=== PATIENT | female | born 1935 | race Caucasian/White ===

== ENCOUNTER 2018-12-11 09:42 | Emergency (ER) | payer MEDICARE, BC ==
[~2018-12-11] VITALS: Ht 160 cm; Wt 65.9 kg
[~2018-12-11 09:42] MED LIST: HYZAAR 100-25 T1 TAB PO; KLONOPIN0.5 MG PO; LIPITOR20 MG PO; NEURONTIN 300300 MG PO; NORVASC10 MG PO; PROZAC20 MG PO; ZOFRAN4 MG PO
[2018-12-11 09:54] VITALS: Ht 160 cm; Wt 65.9 kg
[2018-12-11 10:33] LABS: ANION GAP 11.4 mmol/L (8-16); CARBON DIOXIDE 26.8 mmol/L (21.0-32.0); CREATININE - SERUM 1.1 mg/dL (0.6-1.3); POTASSIUM - SERUM 3.2 mmol/L (3.5-5.1)
[2018-12-11 10:39] LABS: ALBUMIN 3.4 g/dL (3.4-5.0); BILIRUBIN - TOTAL 0.62 mg/dL (0.2-1.3); PROTEIN - SERUM 7.4 g/dL (6.4-8.2)
[2018-12-11 10:43] LABS: BASOPHILS 0.2 % (0-2); EOSINOPHILS 0.3 % (0-7); HEMATOCRIT 41.7 % (36.0-48.0); HEMOGLOBIN 13.5 g/dL (12-16); IMMATURE GRANULOCYTES 0.5 % (0-5); LYMPHOCYTES 19.3 % (15-50); MCH 27.6 pg (26.0-34.0); MCHC 32.4 g/dL (31.0-37.0); MCV 85.3 fL (80.0-100.0); MEAN PLATELET VOLUME 10.3 fL (7.4-10.4); MONOCYTES 6.2 % (2-11); NEUTROPHILS 73.5 % (40-80); PLATELET COUNT 304 10x3/uL (130-400); RBC 4.89 10x6/uL (4.00-5.40); RDW 13.5 % (11.5-14.5); WBC 5.9 10x3/uL (4.8-10.8)
[2018-12-11 11:21] LABS: APPEARANCE CLEAR (CLEAR); COLOR YELLOW (YELLOW); NITRITE NEGATIVE (NEGATIVE); SPECIFIC GRAVITY 1.015 (1.005-1.020)
[2018-12-11 11:22] LABS: BILIRUBIN NEGATIVE (NEGATIVE); GLUCOSE NEGATIVE (NEGATIVE); KETONE MODERATE mg/dL (NEGATIVE); PROTEIN 1+ mg/dL (NEGATIVE)
[2018-12-11 11:24] LABS: BACTERIA FEW /hpf (NEGATIVE); EPITHELIAL CELLS 0-5 /hpf (0-5); HYALINE CAST RARE /lpf (NONE SEEN); MUCUS >1+ /lpf (NONE SEEN); RED CELLS - URINE 0-5 /hpf (0-5); WHITE CELLS - URINE RARE /hpf (NEGATIVE)
[2018-12-11 12:38] LABS: APTT 28.5 SECONDS (22.8-39.4); INR 1.07 (0.85-1.17); PROTIME 13.4 SECONDS (11.6-15.0)
[2018-12-11 12:43] LABS: UDS - AMPHET NEGATIVE QUAL (NEGATIVE); UDS - BARB NEGATIVE QUAL (NEGATIVE); UDS - BENZO NEGATIVE QUAL (NEGATIVE); UDS - COCAINE NEGATIVE QUAL (NEGATIVE); UDS - OPIATE POSITIVE QUAL (NEGATIVE); UDS - PCP NEGATIVE QUAL (NEGATIVE); UDS - THC NEGATIVE QUAL (NEGATIVE)
[2018-12-11 12:53] LABS: CKMB 1.3 U/L (0.0-3.6); CREATINE KINASE 103 UL (21-215); MAGNESIUM - SERUM 2.1 mg/dL (1.8-2.4); THYROID STIMULATING HORMONE 1.96 uIU/mL (0.36-3.74); TROPONIN-I < 0.017 ng/mL (0.000-0.060)
[2018-12-11 14:31] LABS: T4 THYROXINE 9.7 ug/dL (4.7-13.3); THYROID STIMULATING HORMONE 1.82 uIU/mL (0.36-3.74)
[2018-12-11 14:41] VITALS: BP 156/89
== END 2018-12-11 14:42 | disposition home or self-care (01) ==
LOC: D.ER 09:42
PROVIDERS: Emergency Medicine
DX: R41.0 Disorientation, unspecified (principal); I10 Essential (primary) hypertension; F41.8 Other specified anxiety disorders

== ENCOUNTER 2019-01-27 07:16 | Observation (INO) | payer MEDICARE, BC ==
[~2019-01-27] VITALS: Ht 160 cm; Wt 78.0 kg
--- NOTE | ~2019-01-27 | EC ---
PATIENT:MARISA ANDERSEN DATE OF SERVICE: 01/27/19 SEX: F MEDICAL RECORD: [id number] DATE OF : 37 LOCATION:D.[facility] AGE OF PATIENT: 83 ADMISSION DATE: 01/27/19 REFERRING PHYSICIAN: INTERPRETING PHYSICIAN: LUIS HERNÁNDEZ MD ECHOCARDIOGRAM REPORT ECHO CHARGES 4 ECHO COMPLETE Date: 01/28/19 CLINICAL DIAGNOSIS: DYSPNEA/CHEST PAIN ECHOCARDIOGRAPHIC MEASUREMENTS (adult normal given) AC root (d.<3.7cm) 3.5 cm LV Septum d (<1.2 cm> 1.5 cm Valve Excursion 1.6 cm LV Septum (systole) 1.8 cm Left Atria (s.<4.0cm> 3.9 cm LVPW d(<1.2cm) 2.0 cm RV (d.<2.3cm) 3.8 cm LVPW (sytole) 2.2 cm LV diastole(<5.6CM) 4.0 cm MV E-F(>70mm/sec) cm LV systole 2.3 cm LVOT Diameter 1.7 cm MV exc.(>10mm) 1.2 cm Est.ejection fraction (50-75%) % DOPPLER: LVIT cm/sec A 106.0cm/sec E 76.0 cm/sec LA cm/sec RVSP 30 mmHg LVOT 159 cm/sec AOP1/2T m/s Asc. Ao 193 cm/sec RVOT 113 cm/sec RA cm/sec PA 171 cm/sec AV Gradient Peak 14.91mmHg AV Mean 8.62 mmHg AV Area 2.1 cm MV Gradient Peak 5.85 mmHg MV Mean 2.10 mmHg MV Area cm COMMENTS: Gang Drill Operator: Saad SOSA Emergency Department Nurse: 1 Dr. Hernández TAPE# PACS Pericardial Effusion N DATE OF SERVICE: 01/28/2019 ECHOCARDIOGRAM FINDINGS: 1. Left ventricular chamber size is within normal limits. Left ventricular systolic function is normal. Overall ejection fraction estimated at 60%. 2. Left atrium, right atrium, right ventricle chamber sizes are within normal limits. 3. Valvular structures have normal structure and motion. ECHOCARDIOGRAM REPORT [id number] MARISA ANDERSEN 4. Doppler interrogation reveals mild tricuspid regurgitation, no other valvular insufficiency or stenosis. Pulmonary systolic pressure estimated at 30 mmHg. 5. No evidence of pericardial effusion or left ventricular thrombus. TRANSINT:[id number] Voice Confirmation ID: [id number] DOCUMENT ID: [id number] LUIS HERNÁNDEZ MD CC: [id number] DICTATION DATE: 01/28/191525 ASSOCIATE PRODUCER: 01/28/19 2355 ADM IN [facility] [address] [id number]
[2019-01-27 07:41] LABS: BASOPHILS 0.2 % (0-2); EOSINOPHILS 1.8 % (0-7); HEMATOCRIT 37.5 % (36.0-48.0); HEMOGLOBIN 12.3 g/dL (12-16); IMMATURE GRANULOCYTES 0.2 % (0-5); MCH 27.7 pg (26.0-34.0); MCHC 32.8 g/dL (31.0-37.0); MCV 84.5 fL (80.0-100.0); MEAN PLATELET VOLUME 9.7 fL (7.4-10.4); MONOCYTES 12.5 % (2-11); NEUTROPHILS 69.3 % (40-80); RBC 4.44 10x6/uL (4.00-5.40); RDW 13.4 % (11.5-14.5); WBC 4.6 10x3/uL (4.8-10.8)
[2019-01-27 07:45] LABS: PLATELET COUNT 242 10x3/uL (130-400)
[2019-01-27 07:52] LABS: ANION GAP 12.8 mmol/L (8-16); CALCIUM 8.5 mg/dL (8.5-10.1); CARBON DIOXIDE 25.4 mmol/L (21.0-32.0); CREATININE - SERUM 1.1 mg/dL (0.6-1.3); POTASSIUM - SERUM 3.2 mmol/L (3.5-5.1)
[2019-01-27 08:00] LABS: ALBUMIN 2.9 g/dL (3.4-5.0); BILIRUBIN - TOTAL 0.35 mg/dL (0.2-1.3); PROTEIN - SERUM 6.7 g/dL (6.4-8.2)
[2019-01-27 08:01] LABS: APTT 30.3 SECONDS (22.8-39.4); INR 1.15 (0.85-1.17); PROTIME 14.2 SECONDS (11.6-15.0)
[2019-01-27 08:15] LABS: CKMB 0.8 U/L (0.0-3.6); CREATINE KINASE 89 UL (21-215); PRO BNP 1218 pg/mL (0-450)
[2019-01-27 08:17] LABS: TROPONIN-I < 0.017 ng/mL (0.000-0.060)
[2019-01-27 09:05] VITALS: BP 128/61
[2019-01-27 10:00] VITALS: BP 124/60
[2019-01-27] MEDS ORDERED: HYDRALAZINE HCL10 MG ×2 (10:30→10:39)
[2019-01-27] MEDS ORDERED: HYDROCODON-ACE1 EA10 (10:31)
[2019-01-27] MEDS ORDERED: PROZAC10 MG (10:33)
[2019-01-27] MEDS ORDERED: NEURONTIN 300300 MG (10:36)
[2019-01-27 13:43] VITALS: BP 123/45
[2019-01-27 16:16] VITALS: BP 130/49
[2019-01-27 19:57] LABS: APPEARANCE CLEAR (CLEAR); BILIRUBIN NEGATIVE (NEGATIVE); COLOR YELLOW (YELLOW); GLUCOSE NEGATIVE (NEGATIVE); KETONE NEGATIVE (NEGATIVE); NITRITE NEGATIVE (NEGATIVE); PROTEIN NEGATIVE (NEGATIVE); SPECIFIC GRAVITY 1.015 (1.005-1.020); UROBILINOGEN NORMAL (NORMAL)
[2019-01-27 20:00] VITALS: BP 129/79
--- NOTE | 2019-01-27 20:00 | NUR ---
ALERT RESTING IN BED, DENIES PAIN OR NEEDS AT THIS TIME, SEE SHIFT ASSESSMENT, CALL LIGHT IN REACH
[2019-01-28] VITALS: BP 129/60
[2019-01-28 04:00] VITALS: BP 140/71
[2019-01-28 05:13] LABS: BASOPHILS 0 % (0-2); EOSINOPHILS 0 % (0-7); HEMATOCRIT 36.3 % (36.0-48.0); HEMOGLOBIN 11.9 g/dL (12-16); IMMATURE GRANULOCYTES 0.6 % (0-5); LYMPHOCYTES 11.4 % (15-50); MCH 27.6 pg (26.0-34.0); MCHC 32.8 g/dL (31.0-37.0); MCV 84.2 fL (80.0-100.0); MEAN PLATELET VOLUME 10.1 fL (7.4-10.4); MONOCYTES 0.9 % (2-11); NEUTROPHILS 87.1 % (40-80); PLATELET COUNT 225 10x3/uL (130-400); RBC 4.31 10x6/uL (4.00-5.40); RDW 13.5 % (11.5-14.5); WBC 3.5 10x3/uL (4.8-10.8)
[2019-01-28 05:49] LABS: ANION GAP 14.4 mmol/L (8-16); CALCIUM 8.6 mg/dL (8.5-10.1); MAGNESIUM - SERUM 1.7 mg/dL (1.8-2.4); POTASSIUM - SERUM 3.4 mmol/L (3.5-5.1)
[2019-01-28 08:01] VITALS: BP 108/58
[2019-01-28 12:43] VITALS: BP 98/59
[2019-01-28 15:51] VITALS: BP 114/599
--- NOTE | 2019-01-28 18:45 | NUR ---
I have reviewed this patient and I concur with the Shift Assessment completed by the Licensed Practical Nurse today this shift.
--- NOTE | 2019-01-28 19:44 | NUR ---
LYING IN BED. APPEARS TO BE ANXIOUS. DOES NOT WANT DOOR SHUT, WANTS LIGHT ON, REQUESTS GRANTED. VERY PARTICULAR ABOUT BEDDING AND ITEMS ON TABLE. PLEASANTLY CONFUSED. NO IV ACCESS AT THIS TIME. WILL RESITE THIS SHIFT. ABLE TO VOICE NEEDS. DENIES PAIN AT THIS TIME.
[2019-01-28 20:00] VITALS: BP 159/64
--- NOTE | 2019-01-28 21:46 | NUR ---
CONTINUES TO BE ANXIOUS. REQUESTS MEDICATION TO HELP SLEEP, BOBO NOTIFIED WITH ORDERS TO GIVE 25MG BENADRYL IV NOW. WILL NOTE ANY CHANGE.
--- NOTE | 2019-01-28 22:56 | NUR ---
AT 2200, IV RESITED TO LEFT FOREARM, IV BENADRYL GIVEN PER ORDERS. AT THIS TIME, SHE IS STILL SLIGHTLY ANXIOUS, WILL CONTINUE TO OBSERVE.
--- NOTE | 2019-01-29 03:02 | NUR ---
I have reviewed this patient and I concur with the Shift Assessment completed by the Licensed Practical Nurse today this shift.
[2019-01-29 04:00] VITALS: BP 138/84
[2019-01-29 04:38] LABS: BASOPHILS 0 % (0-2); EOSINOPHILS 0 % (0-7); HEMATOCRIT 35.3 % (36.0-48.0); HEMOGLOBIN 11.7 g/dL (12-16); IMMATURE GRANULOCYTES 0.3 % (0-5); LYMPHOCYTES 5.5 % (15-50); MCH 27.6 pg (26.0-34.0); MCHC 33.1 g/dL (31.0-37.0); MCV 83.3 fL (80.0-100.0); MEAN PLATELET VOLUME 10.5 fL (7.4-10.4); MONOCYTES 4.7 % (2-11); NEUTROPHILS 89.5 % (40-80); PLATELET COUNT 269 10x3/uL (130-400); RBC 4.24 10x6/uL (4.00-5.40); RDW 13.7 % (11.5-14.5)
[2019-01-29 04:43] LABS: WBC 12.6 10x3/uL (4.8-10.8)
[2019-01-29 04:58] LABS: ANION GAP 14.1 mmol/L (8-16); CALCIUM 8.9 mg/dL (8.5-10.1); CARBON DIOXIDE 25.9 mmol/L (21.0-32.0); CREATININE - SERUM 1.1 mg/dL (0.6-1.3); MAGNESIUM - SERUM 1.8 mg/dL (1.8-2.4)
--- NOTE | 2019-01-29 07:20 | NUR ---
PT BED ALARM SOUNDING. ENTER ROOM TO FIND PT STANDING AT BEDSIDE ANSWERING PHONE. ASSISTED PT BACK TO BED AND MOVED PHONE CLOSER TO PT. RESP EVEN AND UNLABORED. SALINE LOC TO LEFT FOREARM. SITE WITHOUT REDNESS OR EDEMA. DENIES PAIN AT THIS TIME. DENIES FURTHER NEEDS. CL WITHIN REACH. ENCOURAGED TO CALL WITH NEEDS. CONTINUE POC
[2019-01-29 08:45] VITALS: BP 130/64
[2019-01-29 09:34] VITALS: Ht 160 cm; Wt 78.0 kg
[2019-01-29] MEDS ORDERED: ZPAK PO (11:28)
[2019-01-29] MEDS ORDERED: TESSALON PERLE100 MG PO (11:28)
[2019-01-29] MEDS ORDERED: MUCINEX600 MG PO (11:29)
--- NOTE | 2019-01-29 12:15 | NUR ---
PT SITTING UP IN CHAIR AT BEDSIDE. READY FOR D/C HOME. SALINE LOC D/C'D FROM LEFT FOREARM. CATH INTACT. PT VOICES SHE WILL CONSUME LUNCH AND THEN BE READY FOR D/C PAPERWORK.
[2019-01-29] MEDS ORDERED: PREDNISONE10 MG PO (13:02)
[2019-01-29 13:21] VITALS: BP 140/51
--- NOTE | 2019-01-30 08:37 | CN ---
PATIENT NAME:MARISA ANDERSEN MEDICAL RECORD: [id number] : 37 LOCATION:D.MS [facility] ADMIT DATE: 01/27/19 ACCOUNT: [id number] CONSULTING PHYSICIAN: GERRI LOPES MD REFERRING PHYSICIAN: ANNETTA STALH MD DATE OF CONSULTATION: 01/29/2019 PSYCHIATRIC CONSULTATION IDENTIFYING DATA: The patient is 83 years old and she was admitted to the hospital on a voluntary basis. CHIEF COMPLAINT: Memory loss. HISTORY OF PRESENT ILLNESS: The patient's son who is a director of quality improvement is with her. He says he has noticed short-term memory loss. The patient denies that she is having any memory loss. Apparently, her primary care doctor felt that this might be a problem in the past and he tried her on Aricept, which she did not tolerate. There is no evidence of acute or direct dangerousness. The patient handles most of her affairs at home without any assistance including shopping and cooking and housework and paying her bills. The son only lives a mile away. Apparently, he checks on her frequently. The patient is oriented, but does have some short-term memory loss. ASSESSMENT: Mild cognitive impairment. PLAN: The patient does have evidence of significant memory loss as to whether or not this is going to proceed a full blown dementia is unknown. I am recommending medication and I am going to start her on Namenda at 2.5 mg twice daily. This should be increased in a week or two to 5 mg twice daily if tolerated. She has the appointment or is getting an appointment at the [facility] in [place] and that may be more helpful as they will be able to do a full round of neuropsychiatric testing. TRANSINT:[id number] Voice Confirmation ID: [id number] DOCUMENT ID: [id number] GERRI LOPES MD at 0837 CC: [id number] DICTATION DATE: 01/29/19 1312 COMMERCIAL DRIVER'S LICENSE DRIVER: 01/29/19 1356 DIS IN 01/29/19 [facility] [address] [place] [address]
== END 2019-01-29 13:42 | disposition home or self-care (01) ==
LOC: D.ER 07:16 → D.MS 08:47 → OBSVTIME 01-28 13:05 → D.MS 01-29 13:42
PROVIDERS: Family Medicine; ADMIT Internal Medicine Nephrology; ATTEND Internal Medicine Nephrology
DX: J01.90 Acute sinusitis, unspecified (principal); I10 Essential (primary) hypertension; M19.90 Unspecified osteoarthritis, unspecified site; E87.6 Hypokalemia; G89.29 Other chronic pain; J96.01 Acute respiratory failure with hypoxia; E66.9 Obesity, unspecified; Z68.30 Body mass index [BMI] 30.0-30.9, adult; J20.9 Acute bronchitis, unspecified; G31.84 Mild cognitive impairment of uncertain or unknown etiology

== ENCOUNTER 2019-10-05 16:01 | Emergency (ER) | payer MEDICARE, BC ==
[~2019-10-05] VITALS: Ht 160 cm; Wt 72.7 kg
[~2019-10-05 16:01] MED LIST changes: +HYDRALAZINE HCL10 MG; +HYDROCODON-ACE1 EA10; +MUCINEX600 MG PO; +NEURONTIN 300300 MG; +PREDNISONE10 MG PO; +PROZAC10 MG; +TESSALON PERLE100 MG PO; +ZPAK PO
[2019-10-05 16:27] VITALS: Ht 160 cm; Wt 72.7 kg
[2019-10-05 16:29] LABS: BILIRUBIN NEGATIVE (NEGATIVE); KETONE LARGE mg/dL (NEGATIVE); NITRITE NEGATIVE (NEGATIVE); UROBILINOGEN NORMAL (NORMAL)
[2019-10-05 16:57] LABS: BASOPHILS 0.4 % (0-2); EOSINOPHILS 0.2 % (0-7); HEMOGLOBIN 11.3 g/dL (12-16); IMMATURE GRANULOCYTES 0.2 % (0-5); LYMPHOCYTES 25.4 % (15-50); MCH 27.2 pg (26.0-34.0); MCHC 32.3 g/dL (31.0-37.0); MCV 84.3 fL (80.0-100.0); MEAN PLATELET VOLUME 9.6 fL (7.4-10.4); MONOCYTES 8.5 % (2-11); NEUTROPHILS 65.3 % (40-80); PLATELET COUNT 302 10x3/uL (130-400); RBC 4.15 10x6/uL (4.00-5.40); RDW 13.7 % (11.5-14.5); WBC 5.3 10x3/uL (4.8-10.8)
[2019-10-05 17:04] LABS: APTT 27.9 SECONDS (22.8-39.4); INR 1.12 (0.85-1.17); PROTIME 14.3 SECONDS (11.6-15.0)
[2019-10-05 17:06] LABS: ANION GAP 13.8 mmol/L (8-16); CALCIUM 9.3 mg/dL (8.5-10.1); CARBON DIOXIDE 24.6 mmol/L (21.0-32.0); CREATININE - SERUM 1.1 mg/dL (0.6-1.3); POTASSIUM - SERUM 3.4 mmol/L (3.5-5.1)
[2019-10-05 17:20] LABS: ALBUMIN 3.4 g/dL (3.4-5.0); BILIRUBIN - TOTAL 0.66 mg/dL (0.2-1.3); PROTEIN - SERUM 6.6 g/dL (6.4-8.2); THYROID STIMULATING HORMONE 3.8 uIU/mL (0.36-3.74); TROPONIN-I 0.025 ng/mL (0.000-0.060)
[2019-10-05 17:21] LABS: UDS - AMPHET NEGATIVE QUAL (NEGATIVE); UDS - BARB NEGATIVE QUAL (NEGATIVE); UDS - BENZO NEGATIVE QUAL (NEGATIVE); UDS - COCAINE NEGATIVE QUAL (NEGATIVE); UDS - OPIATE NEGATIVE QUAL (NEGATIVE); UDS - PCP NEGATIVE QUAL (NEGATIVE); UDS - THC NEGATIVE QUAL (NEGATIVE)
[2019-10-05 19:58] VITALS: BP 145/62
== END 2019-10-05 20:00 | disposition home or self-care (01) ==
LOC: D.ER 16:01
PROVIDERS: Family Medicine
DX: G45.9 Transient cerebral ischemic attack, unspecified (principal); I12.9 Hypertensive chronic kidney disease with stage 1 through stage 4 chronic kidney disease, or unspecified chronic kidney disease; N18.9 Chronic kidney disease, unspecified; F03.90 Unspecified dementia, unspecified severity, without behavioral disturbance, psychotic disturbance, mood disturbance, and anxiety; R41.0 Disorientation, unspecified; R30.0 Dysuria; R05 Cough

== ENCOUNTER 2019-10-25 15:47 | Inpatient (IN) | payer MEDICARE, BC ==
[~2019-10-25] VITALS: Ht 160 cm; Wt 81.8 kg
[~2019-10-25 15:47] MED LIST changes: +HYDRALAZINE HCL10 MG PO; -HYDROCODON-ACE1 EA10; +HYDROCODON-ACE1 EA10 PO; -NEURONTIN 300300 MG; -PROZAC10 MG; +PROZAC10 MG PO
[2019-10-25 16:21] LABS: BASOPHILS 0.3 % (0-2); EOSINOPHILS 0.5 % (0-7); HEMATOCRIT 38.2 % (36.0-48.0); HEMOGLOBIN 12.7 g/dL (12-16); IMMATURE GRANULOCYTES 0.6 % (0-5); LYMPHOCYTES 17.5 % (15-50); MCHC 33.2 g/dL (31.0-37.0); MCV 84.3 fL (80.0-100.0); MEAN PLATELET VOLUME 9.6 fL (7.4-10.4); NEUTROPHILS 73.1 % (40-80); PLATELET COUNT 269 10x3/uL (130-400); RBC 4.53 10x6/uL (4.00-5.40); RDW 13.2 % (11.5-14.5); WBC 6.5 10x3/uL (4.8-10.8)
[2019-10-25] MEDS ORDERED: COMPAZINE PO (16:29)
[2019-10-25] MEDS ORDERED: NAMENDA10 MG PO (16:30)
[2019-10-25 16:31] LABS: CALC OSMOLALITY 272 mosm/kg (275-300); CALCIUM 9.4 mg/dL (8.5-10.1); CARBON DIOXIDE 26.2 mmol/L (21.0-32.0); CHLORIDE - SERUM 100 mmol/L (98-107); CREATININE - SERUM 1.1 mg/dL (0.6-1.3); GLUCOSE 94 mg/dL (74-106); POTASSIUM - SERUM 3.2 mmol/L (3.5-5.1); SODIUM 136 mmol/L (136-145); UREA NITROGEN 16 mg/dL (7-18); eGFR NON AFRICAN AMERICAN 50 mL/min (90-120)
[2019-10-25 16:44] LABS: INR 1.04 (0.85-1.17); PROTIME 13.6 SECONDS (11.6-15.0)
[2019-10-25 16:48] LABS: ALBUMIN 3.6 g/dL (3.4-5.0); ALKALINE PHOSPHATASE 55 U/L (30-120); ALT (SGPT) 15 U/L (10-68); BILIRUBIN - TOTAL 0.58 mg/dL (0.2-1.3); CKMB 1.2 U/L (0.0-3.6); CREATINE KINASE 95 UL (21-215); MAGNESIUM - SERUM 1.9 mg/dL (1.8-2.4); PROTEIN - SERUM 7.1 g/dL (6.4-8.2)
[2019-10-25 16:50] LABS: TROPONIN-I 0.016 ng/mL (0.000-0.060)
--- NOTE | 2019-10-25 17:24 | NUR ---
URINE TO LAB
[2019-10-25 17:38] LABS: BILIRUBIN NEGATIVE (NEGATIVE); KETONE SMALL mg/dL (NEGATIVE); NITRITE NEGATIVE (NEGATIVE); UROBILINOGEN NORMAL mg/dL (< 2)
[2019-10-25 17:45] VITALS: BP 176/76
[2019-10-25 18:30] VITALS: BP 189/66
--- NOTE | 2019-10-25 19:05 | NUR ---
REPORT TO BENJIE RUDD
[2019-10-26 00:02] VITALS: BP 147/68; Ht 160 cm; Wt 81.8 kg
[2019-10-26 04:00] VITALS: BP 160/60
[2019-10-26 06:56] LABS: INR 1.11 (0.85-1.17); PROTIME 14.3 SECONDS (11.6-15.0)
[2019-10-26 06:59] LABS: APTT 27.6 SECONDS (22.8-39.4)
[2019-10-26 07:43] LABS: HEMATOCRIT 36.1 % (36.0-48.0); MCH 27.9 pg (26.0-34.0); MCHC 33.2 g/dL (31.0-37.0); MEAN PLATELET VOLUME 9.8 fL (7.4-10.4); NEUTROPHILS 72.4 % (40-80); PLATELET COUNT 298 10x3/uL (130-400); RDW 40.7 % (11.5-14.5)
[2019-10-26 07:44] VITALS: BP 157/70
[2019-10-26 07:44] LABS: EOSINOPHILS 0.5 % (0-7); LYMPHOCYTES 16.1 % (15-50); MONOCYTES 10.4 % (2-11)
[2019-10-26 08:00] LABS: ALBUMIN 3.3 g/dL (3.4-5.0); ANION GAP 15.3 mmol/L (8-16); BILIRUBIN - TOTAL 0.6 mg/dL (0.2-1.3); CALCIUM 8.8 mg/dL (8.5-10.1); CARBON DIOXIDE 22.6 mmol/L (21.0-32.0); CREATININE - SERUM 0.9 mg/dL (0.6-1.3); LDL-HDL RATIO 0.9 ratio (1.5-3.5); MAGNESIUM - SERUM 1.8 mg/dL (1.8-2.4); PHOSPHOROUS 3.4 mg/dL (2.5-4.9); PROTEIN - SERUM 6.5 g/dL (6.4-8.2); THYROID STIMULATING HORMONE 3.44 uIU/mL (0.36-3.74); TROPONIN-I 0.022 ng/mL (0.000-0.060)
[2019-10-26 08:01] LABS: POTASSIUM - SERUM 2.9 mmol/L (3.5-5.1)
--- NOTE | 2019-10-26 09:28 | NUR ---
DR. FONTAINE NOTIFIED OF CONSULT WITH NEW ORDERS NOTED. PATINET HAVING MRI HEAD AT THIS TIME. ALERT AND ORIENTED BUT DISORIENTED TO SITUATION. SON PRESENT. HAND GRASP EQUAL WELL BLE STRENGTH. IV INTACT TO RT ARM. ENCOURAAGED TO USE CALL LIGHT FOR ASSIST.
--- NOTE | 2019-10-26 09:44 | NUR ---
REHAB PRESCREENING Rehab referral received and chart reviewed. This patient has many consults in process. ST/OT/PT/MRI and Neuro consults are pending. Rehab will continue to follow this patient for complete workup in order to assess admission criteria. Thank you for this referral! Shyla Jones, RESIDENTIAL CARE OFFICER Rehab PD
[2019-10-26 11:43] VITALS: BP 149/90
[2019-10-26 15:56] VITALS: BP 136/55
--- NOTE | 2019-10-26 19:30 | NUR ---
PT IN BED, AAO X 2. RESP EVEN AND UNLABORED, NO DISTRESS NOTED, CL IN REACH, SR UP X 2.
[2019-10-26 20:32] VITALS: BP 146/55
--- NOTE | 2019-10-27 02:00 | NUR ---
I have reviewed this patient and I concur with the Shift Assessment completed by the Licensed Practical Nurse today this shift.
[2019-10-27 05:57] VITALS: BP 154/58
[2019-10-27 06:13] LABS: BASOPHILS 0.2 % (0-2); HEMATOCRIT 36.5 % (36.0-48.0); HEMOGLOBIN 12.2 g/dL (12-16); IMMATURE GRANULOCYTES 0.3 % (0-5); MCH 27.7 pg (26.0-34.0); MCHC 33.4 g/dL (31.0-37.0); MEAN PLATELET VOLUME 10.1 fL (7.4-10.4); MONOCYTES 9.7 % (2-11); NEUTROPHILS 64.8 % (40-80); PLATELET COUNT 321 10x3/uL (130-400); RDW 13.3 % (11.5-14.5); WBC 5.9 10x3/uL (4.8-10.8)
[2019-10-27 06:51] LABS: ANION GAP 15.7 mmol/L (8-16); CALCIUM 8.9 mg/dL (8.5-10.1); CARBON DIOXIDE 20.9 mmol/L (21.0-32.0); CREATININE - SERUM 0.9 mg/dL (0.6-1.3); MAGNESIUM - SERUM 1.8 mg/dL (1.8-2.4); PHOSPHOROUS 2.7 mg/dL (2.5-4.9)
[2019-10-27 06:56] LABS: POTASSIUM - SERUM 3.6 mmol/L (3.5-5.1)
--- NOTE | 2019-10-27 08:00 | NUR ---
ALERT AND DISORIENTED TO SITUATION WITH SON PRESENT. NILD TREMOR NOTED TO RUE. AMBUALTES WITH SBA. WITH FALL PRECAUTIONS IN PLACE. DENIES ANY PAIN OR DISCOMFORT. HAND GRASP EQUAL. ENCOURAGED TO USE CALL LIGHT FOR ASSSIT.
[2019-10-27 08:16] VITALS: BP 183/60
[2019-10-27 09:59] VITALS: BP 156/60
[2019-10-27 12:23] VITALS: BP 139/62
[2019-10-27] MEDS ORDERED: PLAVIX75 MG PO (13:29)
--- NOTE | 2019-10-27 15:06 | NUR ---
IV DC/D AND VERBALIZED UNDERSTANDING FROM PATINET AND SON REGARDING DISCHARGE INSTRUCTIONS. STABLE AT TIME OF DISCHARGE.
--- NOTE | 2019-10-27 15:43 | MORECARE ---
CASE MANAGEMENT DISCHARGE SUMMARY PATIENT: MARISA ANDERSEN SHANE UNIT: [id number] ADM DATE: 10/25/19 AGE: 83 : 36 SEX: F ROOM/BED: D.[facility]7 AUTHOR: JAYE JEONG PHYSICIAN: REFERRING PHYSICIAN: JUAN BEST MD DATE OF SERVICE: 10/27/19 Discharge Plan Patient Name: MARISA ANDERSEN [facility] [facility] 1935 Planned Disposition: Home Anticipated Discharge Date: 10/27/19 Discharge Date: 10/27/2019 Expected LOS: 2 Initial Reviewer: [email or web address] Initial Review Date: 10/27/2019 Generated: 10/27/19 4:43 pm Patient Name: MARISA ANDERSEN Page [id number] at 1543 All edits/amendments must be made on the electronic document DICTATION DATE: 10/27/19 1543 LASER OPERATOR: SINDI 10/27/19 1543 RPT#: [id number] DC DATE:10/27/19 STATUS: DIS IN [facility] [address] [place] [address] END OF REPORT
--- NOTE | 2019-10-27 15:51 | MORECARE ---
CASE MANAGEMENT DISCHARGE SUMMARY PATIENT: MARISA ANDERSEN SHANE UNIT: [id number] ADM DATE: 10/25/19 AGE: 83 : 36 SEX: F ROOM/BED: D.[facility]7 AUTHOR: JAYE JEONG PHYSICIAN: REFERRING PHYSICIAN: JUAN BEST MD DATE OF SERVICE: 10/27/19 Discharge Plan Patient Name: MARISA ANDERSEN Facility: [facility]:[place] : 1935 Planned Disposition: Home Anticipated Discharge Date: 10/27/19 Discharge Date: 10/27/2019 Expected LOS: 2 Initial Reviewer: [email or web address] Initial Review Date: 10/27/2019 Generated: 10/27/19 4:50 pm DCPIA - Discharge Planning Initial Assessment Updated by HALLIE: Isael Hansen on 10/27/19 3:45 pm * Is the patient Alert and Oriented? Yes * How many steps to enter\exit or inside your home? 0/0 * PCP Dr. Jadon Hansen MD * Pharmacy [facility] * Preadmission Environment Home Alone * ADLs Independent * Equipment Cane Shower Chair Walker * Other Equipment n/a * List name and contact numbers for known caregivers / representatives who currently or will assist patient after discharge: LANDY ANDERSEN - [phone] * Verbal permission to speak to the caregivers and representatives has been obtained from the patient. Yes * Community resources currently utilized None * Please name any agencies selected above. N/A * Additional services required to return to the preadmission environment? No * Can the patient safely return to the preadmission environment? Yes * Has this patient been hospitalized within the prior 30 days at any hospital? No Coverage Notice Reviewer: [id number] Yuri Hansen Notice Issued Date-Time: 10/27/2019 13:55 Notice Type: Patient Choice Letter Notice Delivered To: Patient Relationship to Patient: Self Change Management Consultant Name: Delivery Method: HAND - Hand Delivered Yue Days: Prior Verbal Notification: Recipient Understood Notice: Yes Recipient Signature: Yes Med Rec Note Co-signed by Attending: Coverage Notice Comment: Refused HH, SNF, IPR, and DME Reviewer: [id number] Yuri Hansen Notice Issued Date-Time: 10/27/2019 13:55 Notice Type: IM Discharge Notice Notice Delivered To: Patient Relationship to Patient: Self Change Management Consultant Name: Delivery Method: HAND - Hand Delivered Yue Days: Prior Verbal Notification: Recipient Understood Notice: Yes Recipient Signature: Yes Med Rec Note Co-signed by Attending: Coverage Notice Comment: DC IMM delivered, explained, signed by the patient, and placed in chart. Signed form also left with the patient. Last DP export: 10/27/19 2:43 p Patient Name: MARISA ANDERSEN Page [phone] at 1551 All edits/amendments must be made on the electronic document DICTATION DATE: 10/27/19 155 DIGITAL ASSET SPECIALIST: SINDI 10/27/19 1550 RPT#: [id number] DC DATE:10/27/19 STATUS: DIS IN [facility] [address] [place] [address] END OF REPORT
--- NOTE | 2019-10-27 15:58 | MORECARE ---
CASE MANAGEMENT DISCHARGE SUMMARY PATIENT: MARISA ANDERSEN SHANE UNIT: [id number] ADM DATE: 10/25/19 AGE: 83 : 36 SEX: F ROOM/BED: D.7682 AUTHOR: JAYE JEONG PHYSICIAN: REFERRING PHYSICIAN: JUAN BEST MD DATE OF SERVICE: 10/27/19 Discharge Plan Patient Name: MARISA ANDERSEN Facility: [facility]:[place] : 1935 Planned Disposition: Home Anticipated Discharge Date: 10/27/19 Discharge Date: 10/27/2019 Expected LOS: 2 Initial Reviewer: HALLIE Initial Review Date: 10/27/2019 Generated: 10/27/19 4:58 pm Comments DCP- Discharge Planning Updated by [email or web address]: Isael Hansen on 10/27/19 2:[address] Patient Name: MARISA ANDERSEN Admission Status: ER Accout number: [id number] Admission Date: 10-25-2019 : 1935 Admission Diagnosis: Attending: JUAN BEST Current LOS: 2 Anticipated DC Date: 10-27-2019 Planned Disposition: Home Primary Insurance: MEDICARE A & B Discharge Planning Comments: CM met with patient to complete initial dc planning assessment. CM educated patient on the CM role and verbal consent given by patient to speak with her son Landy ([phone]) to complete assessment. CM verified patient's address, phone number, and emergency contact phone numbers. Patient lives at home alone. Patient states that her PCP is Dr. Jadon Hansen MD. Patient states that she fills her medications at [facility]. At discharge patient plans to return Home and feels this is a safe discharge. CM discussed availability of home health, rehab services, and medical equipment. Patient states that she is independent and has no need of DME or SNF, IPR, or HH; declination signed. Patient denied other known discharge needs at this time. Transportation provider at discharge will be with her son Landy. CM will continue to follow and will assist as needed with dc plans/needs. Director Medical Safety: Isael Hansen DCPIA - Discharge Planning Initial Assessment Updated by [email or web address]: Isael Hansen on 9/20/20 3:45 pm * Is the patient Alert and Oriented? Yes * How many steps to enter\exit or inside your home? 0/0 * PCP Dr. Jadon Hansen MD * Pharmacy [facility] * Preadmission Environment Home Alone * ADLs Independent * Equipment Cane Shower Chair Walker * Other Equipment n/a * List name and contact numbers for known caregivers / representatives who currently or will assist patient after discharge: LANDY ANDERSEN - [phone] * Verbal permission to speak to the caregivers and representatives has been obtained from the patient. Yes * Community resources currently utilized None * Please name any agencies selected above. N/A * Additional services required to return to the preadmission environment? No * Can the patient safely return to the preadmission environment? Yes * Has this patient been hospitalized within the prior 30 days at any hospital? No Coverage Notice Reviewer: [email or web address] Yuri Hansen Notice Issued Date-Time: 10/27/2019 13:55 Notice Type: Patient Choice Letter Notice Delivered To: Patient Relationship to Patient: Self Broadcast Chief Engineer Name: Delivery Method: HAND - Hand Delivered Yue Days: Prior Verbal Notification: Recipient Understood Notice: Yes Recipient Signature: Yes Med Rec Note Co-signed by Attending: Coverage Notice Comment: Refused HH, SNF, IPR, and DME Reviewer: [id number] Yuri Hansen Notice Issued Date-Time: 10/27/2019 13:55 Notice Type: IM Discharge Notice Notice Delivered To: Patient Relationship to Patient: Self Broadcast Chief Engineer Name: Delivery Method: HAND - Hand Delivered Yue Days: Prior Verbal Notification: Recipient Understood Notice: Yes Recipient Signature: Yes Med Rec Note Co-signed by Attending: Coverage Notice Comment: DC IMM delivered, explained, signed by the patient, and placed in chart. Signed form also left with the patient. Last DP export: 10/27/19 2:51 p Patient Name: MARISA ANDERSEN Page [phone] at 1558 All edits/amendments must be made on the electronic document DICTATION DATE: 10/27/191557 SHIP RIGGER APPRENTICE: SINDI 10/27/191557 RPT#: [id number] DC DATE:10/27/19 STATUS: DIS IN [id number] [place] [address] END OF REPORT
--- NOTE | 2019-10-28 09:13 | MORECARE ---
CASE MANAGEMENT DISCHARGE SUMMARY PATIENT: MARISA ANDERSEN SHANE UNIT: [id number] ADM DATE: 10/25/19 AGE: 83 : 36 SEX: F ROOM/BED: D.2333 AUTHOR: JAYE JEONG PHYSICIAN: REFERRING PHYSICIAN: JUAN BEST MD DATE OF SERVICE: 10/28/19 Discharge Plan Patient Name: MARISA ANDERSEN Facility: [facility]:[place] : 1935 Planned Disposition: Home Anticipated Discharge Date: 10/27/19 Discharge Date: 10/27/2019 Expected LOS: 2 Initial Reviewer: HALLIE Initial Review Date: 10/27/2019 Generated: 10/28/19 10:13 am Comments DCP- Discharge Planning Updated by [email or web address]: Isael Hansen on 10/27/19 2:[address] Patient Name: MARISA ANDERSEN Admission Status: ER Accout number: [id number] Admission Date: 10-25-2019 : 1935 Admission Diagnosis: Attending: JUAN BEST Current LOS: 2 Anticipated DC Date: 10-27-2019 Planned Disposition: Home Primary Insurance: MEDICARE A & B Discharge Planning Comments: CM met with patient to complete initial dc planning assessment. CM educated patient on the CM role and verbal consent given by patient to speak with her son Landy ([phone]) to complete assessment. CM verified patient's address, phone number, and emergency contact phone numbers. Patient lives at home alone. Patient states that her PCP is Dr. Jadon Hansen MD. Patient states that she fills her medications at [facility]. At discharge patient plans to return Home and feels this is a safe discharge. CM discussed availability of home health, rehab services, and medical equipment. Patient states that she is independent and has no need of DME or SNF, IPR, or HH; declination signed. Patient denied other known discharge needs at this time. Transportation provider at discharge will be with her son Landy. CM will continue to follow and will assist as needed with dc plans/needs. Instrument Maker Apprentice: Isael Hansen DCPIA - Discharge Planning Initial Assessment Updated by [id number]: Isael Hansen on 9/20/20 3:45 pm * Is the patient Alert and Oriented? Yes * How many steps to enter\exit or inside your home? 0/0 * PCP Dr. Jadon Hansen MD * Pharmacy [facility] * Preadmission Environment Home Alone * ADLs Independent * Equipment Cane Shower Chair Walker * Other Equipment n/a * List name and contact numbers for known caregivers / representatives who currently or will assist patient after discharge: LANDY ANDERSEN - [phone] * Verbal permission to speak to the caregivers and representatives has been obtained from the patient. Yes * Community resources currently utilized None * Please name any agencies selected above. N/A * Additional services required to return to the preadmission environment? No * Can the patient safely return to the preadmission environment? Yes * Has this patient been hospitalized within the prior 30 days at any hospital? No Coverage Notice Reviewer: [id number] Yuri Hansen Notice Issued Date-Time: 10/27/2019 13:55 Notice Type: Patient Choice Letter Notice Delivered To: Patient Relationship to Patient: Self Molder Floor Name: Delivery Method: HAND - Hand Delivered Yue Days: Prior Verbal Notification: Recipient Understood Notice: Yes Recipient Signature: Yes Med Rec Note Co-signed by Attending: Coverage Notice Comment: Refused HH, SNF, IPR, and DME Reviewer: [id number] Yuri Hansen Notice Issued Date-Time: 10/27/2019 13:55 Notice Type: IM Discharge Notice Notice Delivered To: Patient Relationship to Patient: Self Molder Floor Name: Delivery Method: HAND - Hand Delivered Yue Days: Prior Verbal Notification: Recipient Understood Notice: Yes Recipient Signature: Yes Med Rec Note Co-signed by Attending: Coverage Notice Comment: DC IMM delivered, explained, signed by the patient, and placed in chart. Signed form also left with the patient. Last DP export: 10/27/19 2:58 p Patient Name: MARISA ANDERSEN Page [id number] at 0913 All edits/amendments must be made on the electronic document DICTATION DATE: 10/28/19912 SANDWICH ARTIST: SINDI 10/28/19912 RPT#: [id number] DC DATE:10/27/19 STATUS: DIS IN [id number] [place] [address] END OF REPORT
== END 2019-10-27 15:08 | disposition home or self-care (01) | DRG 66 ==
LOC: D.ER 15:47 → D.MS 17:12
PROVIDERS: Family Medicine; ADMIT Emergency Medicine; ATTEND Emergency Medicine
DX: I63.9 Cerebral infarction, unspecified (principal); E87.6 Hypokalemia; I10 Essential (primary) hypertension; E78.5 Hyperlipidemia, unspecified; F41.8 Other specified anxiety disorders; G89.29 Other chronic pain; M19.90 Unspecified osteoarthritis, unspecified site; G25.0 Essential tremor; G30.9 Alzheimer's disease, unspecified; F02.80 Dementia in other diseases classified elsewhere, unspecified severity, without behavioral disturbance, psychotic disturbance, mood disturbance, and anxiety